=== PATIENT | male | born 1975 | race Two or more races ===

== ENCOUNTER 2020-04-27 10:40 | Emergency (ER) | payer BC, OTHER ==
[~2020-04-27] VITALS: Ht 182.9 cm; Wt 122.0 kg
--- NOTE | 2020-04-27 11:15 | NUR ---
PT CAME IN CO OF A "HARDENED VEIN" BEHIND HIS LEFT KNEE. HE SAYS IT HAS BEEN GOING ON FOR A COUPLE WEEKS BUT TODAY WHEN HE WOKE UP THERE WAS A SEVER PAIN BEHIND HIS KNEE THAT EXTENDED UP INTO HIS GROIN. PT DENIES DVT HX. US IN WITH PT AT THIS TIME.
--- NOTE | 2020-04-27 12:06 | NUR ---
PT UP FOR RECHECK AT THIS TIME
[2020-04-27 12:23] LABS: BASOPHILS # (AUTO) 0.04 x10^3/uL (0-0.1); BASOPHILS % (AUTO) 1 % (0-1); EOSINOPHILS # (AUTO) 0.13 x10^3/uL (0-0.4); EOSINOPHILS % (AUTO) 2 % (1-7); LYMPHOCYTES # (AUTO) 1.76 x10^3/uL (1-3.4); LYMPHOCYTES % (AUTO) 21 % (22-44); MD NO; MEAN CORPUSCULAR HEMOGLOBIN 29.9 pg (27.5-34.5); MEAN CORPUSCULAR HGB CONC 33.7 g/dL (33.2-36.2); MEAN PLATELET VOLUME 6.5 fL (7.4-10.4); MONOCYTES # (AUTO) 0.38 x10^3/uL (0.2-0.8); MONOCYTES % (AUTO) 4 % (2-9); NEUTROPHILS # (AUTO) 6.14 x10^3/uL (1.8-6.8); NEUTROPHILS % (AUTO) 73 % (42-75); PLATELET COUNT 203 x10^3/uL (130-400); RED BLOOD COUNT 5.26 x10^6/uL (4.38-5.82); RED CELL DISTRIBUTION WIDTH 13.1 % (9.4-14.8)
[2020-04-27 12:32] LABS: INTERNATIONAL NORMALIZED RATIO 0.97 (0.93-1.1); PROTHROMBIN TIME 10.3 Seconds (9.6-11.5)
[2020-04-27 12:34] LABS: ALBUMIN 3.7 g/dL (3.4-5.0); ANION GAP 7 mmol/L (5-15); CALCIUM 9.2 mg/dL (8.5-10.1); CHLORIDE 111 mmol/L (98-107)
[2020-04-27 12:52] VITALS: BP 137/82
== END 2020-04-27 13:06 | disposition home or self-care (01) ==
LOC: ED 13:01
DX: I80.02 Phlebitis and thrombophlebitis of superficial vessels of left lower extremity (principal)
CPT/HCPCS: 36415; 80048; 82040; 85025; 85610; 99284